=== PATIENT | male | born 1980 | race Caucasian/White ===

== ENCOUNTER 2019-06-07 20:58 | Emergency (ER) | payer BC, OTHER ==
[2019-06-07] MEDS ORDERED: LIDOCAINE 1% W/ EPINEPHRINE 20 ML VIAL INJ ONE (21:21)
[2019-06-07] MEDS ORDERED: PLAIN PACKING STRIP 1/4 1 EA BTTL TOP ONE (21:22)
[2019-06-07] MEDS ORDERED: SULFA/TRIMETH 800/160 (DS) TAB 1 EA TAB PO ONE (21:29)
--- NOTE | 2019-06-07 21:33 | ED.PDOC ---
History of Present Illness - General Chief Complaint: Skin/Abrasion/Tear Stated Complaint: lesion to buttocks Time Seen by Provider: 06/07/19 21:29 Source: patient Exam Limitations: no limitations - History of Present Illness Initial Comments: The patient is a 39-year-old male presented emergency room secondary to a right buttock abscess that is been present for about a week getting worse.it actually opened up some today earlier and drained. No fever. No evidence of sepsis. No allergies. No previous infection at the site. Timing/Duration: 1 week Severity: moderate Improving Factors: nothing Worsening Factors: nothing Associated Symptoms: denies symptoms Home Medications: Ambulatory Orders Sulfa/Trimeth 800/160 (Ds) Tab [Bactrim DS Tab] 1 ea PO BID #20 tab 06/07/19 Review of Systems - Review of Systems Constitutional: States: no symptoms reported EENTM: States: no symptoms reported Respiratory: States: no symptoms reported Cardiology: States: no symptoms reported Gastrointestinal/Abdominal: States: no symptoms reported Genitourinary: States: no symptoms reported Musculoskeletal: States: no symptoms reported Skin: States: see HPI Neurological: States: no symptoms reported Endocrine: States: no symptoms reported All other Systems: No Change from Baseline Physical Exam - Physical Exam General Appearance: Alert, Comfortable, No apparent distress Eye Exam: bilateral normal Ears, Nose, Throat: hearing grossly normal Neck: full range of motion Respiratory: no respiratory distress, no accessory muscle use Cardiovascular/Chest: normal peripheral pulses, no edema Peripheral Pulses: dorsalis pedis,right: 2+, dorsalis pedis,left: 2+ Rectal Exam: deferred Back Exam: normal inspection, no CVA tenderness Extremity: normal range of motion, non-tender, normal inspection, no pedal edema, normal capillary refill 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 Progress - Progress Progress: 06/07/19 21:31 The patient is a 39-year-old male presented emergency room with a abscess to the left buttock. Risk and benefits of incision and drainage were explained and patient agreed to proceed. Area was cleaned with alcohol. Xylocaine with epinephrine x2 cc was used as local anesthetic. #11 scalpel was used to make a 1-1/2 cm incision over the draining area. Wound culture was performed. Sterile cotton tip swabs were used to break up septations. Small amount of quarter inch iodoform gauze was used for packing and dressing was applied. Estimated blood loss is less than 2 cc. Patient tolerated the procedure well. The patient needs to take Bactrim twice daily for the next 10 days. He needs to change the packing out daily. ER warnings are given for any worsening. It will probably take 2 weeks to heal from the inside out. [id number] Departure - Departure Clinical Impression: Left buttock abscess Disposition: Discharge to Home or Self Care Condition: Fair Departure Forms: ED Discharge - Pt. Copy, Patient Portal Self Enrollment Instructions: DI for Wound Infection Diet: regular diet Activity: increase activity as tolerated Referrals: HUE CHUNG [Primary Care Provider] - 1-2 Weeks Prescriptions: Sulfa/Trimeth 800/160 (Ds) Tab [Bactrim DS Tab] 1 ea PO BID #20 tab Home Medications: Ambulatory Orders Sulfa/Trimeth 800/160 (Ds) Tab [Bactrim DS Tab] 1 ea PO BID #20 tab 06/07/19 Additional Instructions: The patient is a 39-year-old male presented emergency room with a abscess to the left buttock. It was drained and packed here in the emergency room. The patient needs to take Bactrim twice daily for the next 10 days. He needs to change the packing out daily. ER warnings are given for any worsening. It will probably take 2 weeks to heal from the inside out.
[2019-06-07 21:45] VITALS: TEMP 97.8
[2019-06-07 21:55] VITALS: BP 143/91; O2SAT 97
== END 2019-06-07 21:54 | disposition home or self-care (01) ==
LOC: ER 20:58
DX: L02.31 Cutaneous abscess of buttock (principal)